=== PATIENT | female | born 2000 | race American Indian/Alaskan Native ===

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

== ENCOUNTER 2019-12-22 09:51 | Emergency (ER) | payer SELFPAY ==
[2019-12-22 09:59] VITALS: BP 127/74
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
[2019-12-22 13:21] LABS: Basophils % (Auto) 0.4 % (0.0-1.8); Eosinophils # (Auto) 0.1 K/mm3 (0.0-0.4); Eosinophils % (Auto) 0.9 % (0.0-4.3); Hematocrit 34.5 % (30.3-42.9); Hemoglobin 11.1 gm/dl (10.1-14.3); Lymphocytes % (Auto) 33.9 % (13.4-35.0); Mean Corpuscular HGB Conc 32 % (30-34); Mean Corpuscular Volume 86 fl (79-97); Monocytes # (Auto) 0.5 K/mm3 (0.0-0.8); Monocytes % (Auto) 6.1 % (0.0-7.3); Platelet Count 312 K/mm3 (140-440); Red Cell Distribution Width 14.9 % (13.2-15.2)
== END 2019-12-22 14:10 | disposition left against medical advice (07) ==
LOC: ED 09:51
DX: R53.1 Weakness (principal)
CPT/HCPCS: 36415; 85025; 99283

== ENCOUNTER 2021-09-14 17:33 | Emergency (ER) | payer SELFPAY | END 2021-09-14 18:00 | LOC: ED 17:33 | DX: O46.8X9 Other antepartum hemorrhage, unspecified trimester (principal); Z3A.09 9 weeks gestation of pregnancy; Z53.21 Procedure and treatment not carried out due to patient leaving prior to being seen by health care provider ==